=== PATIENT | female | born 1975 | race African-American/Black ===

== ENCOUNTER 2019-03-31 20:52 | Emergency (ER) | payer OTHER | END 2019-03-31 21:54 | disposition home or self-care (01) | LOC: JERFT 20:52 ==

== ENCOUNTER 2024-06-26 21:07 | Emergency (ER) | payer OTHER ==
[2024-06-26 21:12] VITALS: BP 167/82; PULSE 18; RESP 76; TEMP 98.3; BMI 42.5
[2024-06-26] MEDS ORDERED: traMADol HCL 50 MG TABLET ONE (21:58)
[2024-06-26] MEDS: traMADol HCL 50 MG TABLET PO ONE (22:01)
== END 2024-06-26 22:55 | disposition home or self-care (01) ==
LOC: JERFT 21:07
DX: K06.8 Other specified disorders of gingiva and edentulous alveolar ridge (principal); K08.89 Other specified disorders of teeth and supporting structures
CPT/HCPCS: 99283-25